=== PATIENT | male | born 1975 | race Caucasian/White ===

== ENCOUNTER 2020-05-20 10:35 | Emergency (ER) | payer OTHER, SELFPAY ==
[2020-05-20 10:45] VITALS: BP 148/83; PULSE 68; RESP 18; TEMP 36.7; O2SAT 100
--- NOTE | 2020-05-20 10:58 | ED.GENADULT ---
HPI - General Adult General Chief complaint: Extremity Injury, Lower Stated complaint: Gout left foot Time Seen by Provider: 05/20/20 10:58 Source: patient Mode of arrival: ambulatory History of Present Illness HPI narrative: Patient presents with swelling to right great toe and joint. Patient states he has a history of gout and has had changed his diet recently to a high-protein and has increased his alcohol intake. Patient states he did kick a door but he had a steel toed boot on and denies any need for an x-ray at this time. Patient states his symptoms are the same as when he has had gout flare in the past. Related Data Allergies Allergy/AdvReac Type Severity Reaction Status Date / Time No Known Allergies Allergy Unknown Verified 05/20/20 10:56 Review of Systems Review of Systems: Narrative: CONSTITUTIONAL: Denies fever, chills, or sweats. EYES: Denies visual changes, redness, or discharge. ENT: Denies rhinorrhea, congestion, sore throat, or otalgia. CARDIOVASCULAR: Denies chest pain, palpitations, or edema. RESPIRATORY: Denies cough or dyspnea. GASTROINTESTINAL: Denies abdominal pain, nausea, vomiting, or diarrhea. GENITOURINARY: Denies dysuria or hematuria. SKIN: Denies rash or itching. MUSCULOSKELETAL: Denies back pain, joint pain, or myalgia. Right great toe pain NEUROLOGIC: Denies headache, numbness, or weakness. PSYCHIATRIC: Denies anxiety or depression. All systems reviewed & are unremarkable except as noted in HPI and below PMFSH Family History Family History (Updated 03/05/16 @ 23:21 by DOCTOR UNKNOWN) Mother Patient's mother is in good health Family history of malignant neoplasm of breast in first degree relative Father Patient's father is in good health Sibling Patient's sister is in good health Patient's brother is in good health Social History Social History Smoking status: Never smoker Alcohol intake: current Comments At time of signature, agree with nursing past medical, surgical, social and family history. There is no relevant family history pertinent to the presenting complaint Exam Narrative: Exam Narrative: GENERAL: Well-appearing, well-nourished, and in no acute distress. HEAD: Normocephalic, atraumatic. EYES: PERRLA and EOMI. ENT: Nares clear, no rhinorrhea or epistaxis. Mucous membranes moist. NECK: Supple. CHEST: Clear to auscultation. No respiratory distress. HEART: Regular rate and rhythm. No murmur heard. Normal peripheral pulses. ABDOMEN: Soft, nontender, nondistended, normal active bowel sounds. EXTREMITIES: Normal range of motion. No edema. ANKLE EXAM SKIN INTACT. NORMAL DP PULSE, NORMAL CAP REFILL. NORMAL SENSATION. Swelling and redness to the base of right great toe consistent with gout SKIN: Warm, dry, no rash. NEURO: No focal deficits. Alert and oriented x3. Geovani Coma Scale Eye Opening: Spontaneous 4 [place] Coma Scale Motor: Obeys Commands 6 [place] Coma Scale Verbal: Oriented 5 [place] Coma Scale Total 15 Course Vital Signs Vital signs: Vital Signs Temperature 36.7 C 05/20/20 10:45 Pulse Rate 68 05/20/20 10:45 Respiratory Rate 18 05/20/20 10:45 Blood Pressure 148/83 H 05/20/20 10:45 Pulse Oximetry 100 05/20/20 10:45 Temperature 36.7 C 05/20/20 10:45 Pulse Rate 68 05/20/20 10:45 Respiratory Rate 18 05/20/20 10:45 Blood Pressure 148/83 H 05/20/20 10:45 Pulse Oximetry 100 05/20/20 10:45 Please EDWARD schedule a followup visit with your personal physician for further evaluation and treatment. Including recheck and discussion of your blood pressure. If your symptoms persist, change or worsen significantly before you can contact your personal physician then please, without delay, go to the emergency department for further evaluation Medical Decision Making Medical Records Medical records reviewed: Yes I reviewed the patient's medical records. Vital Signs Vital Signs: Vital Signs Temperature 36.7 C 05/20/20 10
== END 2020-05-20 11:05 | disposition home or self-care (01) ==
PROVIDERS: Emergency Provider Nurse Practitioner Family
DX: M10.9 Gout, unspecified (principal)
CPT/HCPCS: 99203; G0463

== ENCOUNTER 2020-07-01 09:20 | Outpatient (CLI) | payer OTHER, SELFPAY ==
[2020-07-01 09:48] LABS: INR 0.9; Prothrombin Time 12.2 Seconds (11.1-14.7)
[2020-07-01 09:52] LABS: Alanine Aminotransferase 153 U/L (4-50); Albumin Level 4.2 g/dL (3.5-5.1); Alkaline Phosphatase 85 U/L (38-126); Aspartate Amino Transferase 76 U/L (17-59); Bilirubin,Total 0.5 mg/dL (0.2-1.3)
[2020-07-01 10:32] LABS: HIV 1/2 Ab P24 Ag Result Negative (Negative)
[2020-07-01 10:46] LABS: Hepatitis B Surface Antigen Negative (Negative)
[2020-07-01 11:03] LABS: Hepatitis B Surface Anti Res Negative; Hepatitis C Virus Antibody Negative (Negative)
[2020-07-04 18:21] LABS: Hepatitis B Core Ab Total Nonreactive (Nonreactive)
== END 2020-07-01 09:21 | disposition home or self-care (01) ==
PROVIDERS: PCP Internal Medicine; Visit Provider Internal Medicine
DX: R74.01 Elevation of levels of liver transaminase levels (principal)
CPT/HCPCS: 36415; 80076; 85610; 86703; 86704; 86706; 86803; 87340; G0432

== ENCOUNTER → 2020-07-02 11:32 | Outpatient (CLI) | payer OTHER, SELFPAY ==
--- NOTE | ~2020-07-02 | US_ITS ---
EXAMINATION: US abdomen limited EXAM DATE: 07/02/2020 12:01 INDICATION: R74.01 - Elevation of levels of liver transaminase levels . TECHNIQUE: Multiple grayscale and Doppler images of the abdomen right upper quadrant were obtained (migue y a technologist who performed the scan) and subsequently reviewed. There is no prior study for mike sam. FINDINGS: The pancreatic head and body are normal in appearance. The pancreatic tail is not visualized. The l iver has normal echogenicity and contour. There is a 10 x 9 x 7 mm hyperechoic homogeneous focus shannon ntified in the left liver lobe, most likely hemangioma or other benign histology. Liver lesions are n onspecific by ultrasound. Consider 6 month follow-up ultrasound. There is no evidence of intrahepati c biliary duct dilation. Portal venous flow was seen in the hepatopedal, normal direction and has no rmal Doppler waveform. No right-sided hydronephrosis. Common bile duct measures 3 mm, which is normal. The gallbladder wall is normal in thickness, with ex pected amount of distention. No sonographic evidence of pericholecystic fluid. There is no cholelit hiases. Technologist performing exam reports patient did not demonstrate sonographic Romero's sign. Please note that this sign is less reliable in patients who have received pain medication. IMPRESSION: Small nonspecific left liver lobe lesion is likely hemangioma or other benign histology. Consider 6 month follow-up sonogram. Reviewed, dictated and finalized at location B. OLIDATION ACCOUNTANT IMPRESSION: Small nonspecific left liver lobe lesion is likely hemangioma or ot her benign histology. Consider 6 month follow-up sonogram.
== END ==
PROVIDERS: PCP Internal Medicine; Visit Provider Internal Medicine
DX: R74.01 Elevation of levels of liver transaminase levels (principal); K76.9 Liver disease, unspecified
CPT/HCPCS: 76705

== ENCOUNTER 2020-10-16 11:29 | Outpatient (CLI) | payer OTHER, SELFPAY ==
[2020-10-16 12:20] LABS: Alanine Aminotransferase 54 U/L (4-50); Albumin Level 4.2 g/dL (3.5-5.1); Alkaline Phosphatase 72 U/L (38-126); Anion Gap 8 mmol/L (8-16); Aspartate Amino Transferase 42 U/L (17-59); Bilirubin,Total 0.7 mg/dL (0.2-1.3); Blood Urea Nitrogen 16 mg/dL (9-20); Calcium 9.1 mg/dL (8.4-10.2); Carbon Dioxide 28 mmol/L (22-30); Chloride 106 mmol/L (98-107); Estimated Glomerular Filt Rate > 60; Glucose 92 mg/dL (75-110); Sodium 142 mmol/L (137-145)
== END 2020-10-16 11:30 | disposition home or self-care (01) ==
LOC: ANHLAB 11:33
PROVIDERS: PCP Internal Medicine; Visit Provider Internal Medicine
DX: R74.8 Abnormal levels of other serum enzymes (principal)
CPT/HCPCS: 36415; 80053

== ENCOUNTER 2021-05-04 01:09 | Emergency (ER) | payer OTHER, SELFPAY ==
[2021-05-04 01:11] VITALS: BP 156/80; PULSE 78; RESP 18; TEMP 36.1; O2SAT 99
--- NOTE | 2021-05-04 04:04 | ED.SKABFB ---
HPI - Skin/Abscess/Foreign Bdy General Chief complaint: Skin/Abscess/Foreign Body Stated complaint: Back pain, cyst Time Seen by Provider: 05/04/21 03:14 History of Present Illness HPI narrative: Patient is a 46-year-old male who presents ER with pain and swelling to his back. Reports he has a cyst in his back has become irritated over the last day. Reports purulent drainage. No fevers or chills or sweats. Has had this happen previously and required drainage. No known trauma. Related Data Home Medications Medication Instructions Recorded Confirmed lactobacillus combination no.8 3 3,000 mmu cells PO DAILY 07/01/20 11/11/20 billion cell capsule multivitamin,cf-[id number] 1 tablet PO DAILY 07/01/20 11/11/20 omega-3 fatty acids 1,000 mg 1,000 mg PO DAILY 07/01/20 11/11/20 capsule Allergies Allergy/AdvReac Type Severity Reaction Status Date / Time No Known Allergies Allergy Unknown Verified 05/04/21 01:14 Review of Systems Constitutional: Constitutional: Denies chills, Denies fever(s) and Denies weakness Musculoskeletal: Musculoskeletal: Denies back pain (From infection not from a muscular issue) and Denies muscle cramps Integumentary/Breasts: Skin/Breast: Reports erythema, Denies rash and Denies skin ulcer PMFSH Past Medical History Medical History (Updated 05/04/21 @ 04:08 by Ten Waters MD) Erectile dysfunction Long-term current use of testosterone replacement therapy Surgical History Surgical History (Updated 05/04/21 @ 04:07 by Ten Waters MD) No pertinent past surgical history Family History Family History (Updated 07/01/20 @ 08:06 by Lise Moura) Mother Family history of malignant neoplasm of breast in first degree relative Hypertension Obesity Father Patient's father is in good health Sibling Hypertension Anxiety Obesity Grandparent Arthritis Lung cancer Cancer Social History Social History (Updated 07/01/20 @ 08:07 by Lise Moura) Smoking status: Former smoker Alcohol intake: current Substance use: never Exam Narrative: GENERAL: Well-appearing, well-nourished, and in no acute distress. HEAD: Normocephalic, atraumatic. Back: Right lower back with redness and swelling consistent with inflamed cyst. No midline tenderness. EXTREMITIES: Normal range of motion. No edema. SKIN: Warm, dry, no rash. NEURO: Alert and oriented x3. PSYCH: Normal mood and affect. Course Course Emergency Course: Inflamed/infected cyst. Discharged with Bactrim, tolerated I&D. Vital Signs Vital signs: Vital Signs Temperature 96.9 F L 05/04/21 01:11 Pulse Rate 78 05/04/21 01:11 Respiratory Rate 18 05/04/21 01:11 Blood Pressure 156/80 H 05/04/21 01:11 Pulse Oximetry 99 05/04/21 01:11 Temperature 96.9 F L 05/04/21 01:11 Pulse Rate 78 05/04/21 01:11 Respiratory Rate 18 05/04/21 01:11 Blood Pressure 156/80 H 05/04/21 01:11 Pulse Oximetry 99 05/04/21 01:11 Procedures Abscess I/D back: Date of Incision: 05/04/21 Time of Incision: 03:40 Local Anesthetic: lidocaine 1% and with epi Amount of anesthesia used (mL): 5 Irrigation: No Packing used?: iodoform I&D Results: Pus Complications: pain Discharge Plan Discharge Clinical Impression: Abscess Patient Disposition: Home, Self-Care Condition: Stable Instructions: Antibiotic Form, Abscess (ED) Additional Instructions: Follow-up with your primary care doctor. Remove your packing in 2 days. Take your full course of antibiotics. Return to the ER if you have increased pain, increased redness to your back, you have additional concerns. Prescriptions: New sulfamethoxazole-trimethoprim [Bactrim DS] 800-160 mg tablet 1 tablet PO Q12H Qty: 14 RF: 0 hydrocodone-acetaminophen 5-325 mg tablet 1 tablet PO Q6H PRN (Reason: pain) Qty: 12 RF: 0 No Action omega-3 fatty acids [Fish Oil Concentrate] 1,00
[2021-05-04 04:35] VITALS: BP 176/80; PULSE 76; RESP 20; TEMP 36.2; O2SAT 98
== END 2021-05-04 04:36 | disposition home or self-care (01) ==
PROVIDERS: Emergency Provider Emergency Medicine; PCP Internal Medicine
DX: L02.212 Cutaneous abscess of back [any part, except buttock and flank] (principal); Z87.891 Personal history of nicotine dependence
CPT/HCPCS: 10061; 99283

== ENCOUNTER 2023-02-12 19:36 | Emergency (ER) | payer OTHER, SELFPAY ==
[2023-02-12 19:46] VITALS: BP 179/93; PULSE 75; RESP 16; TEMP 36.6; O2SAT 98
--- NOTE | 2023-02-12 19:54 | ED.GENADULT ---
HPI - General Adult General Stated complaint: Insect Bite Source: patient Mode of arrival: ambulatory Limitations: no limitations and dementia History of Present Illness HPI narrative: Patient presents for evaluation of left foot swelling. He indicates he noticed what he believes to be a insect bite to the anterior aspect of the distal left lower leg about 36 hours ago. Today he noticed swelling in the left foot. He has some redness. He denies significant pain. No fever, chills, nausea, vomiting. He does not smoke. He is not diabetic. He took cetirizine for symptoms. He also took a 20 mg prednisone that he had at home. Related Data Home Medications Medication Instructions Recorded Confirmed lactobacillus combination no.8 3 3,000 mmu cells PO DAILY 07/01/20 11/11/20 billion cell capsule (Adult Probiotic) multivitamin,sg-vfsi-gesrykzz 1 tablet PO DAILY 07/01/20 11/11/20 (Complete Multivitamin tablet) omega-3 fatty acids 1,000 mg 1,000 mg PO DAILY 07/01/20 11/11/20 capsule (Fish Oil Concentrate) Allergies Allergy/AdvReac Type Severity Reaction Status Date / Time No Known Allergies Allergy Unknown Verified 02/12/23 19:48 Review of Systems Review of Systems: CONSTITUTIONAL: Denies fever, chills, or sweats. EYES: Denies visual changes, redness, or discharge. ENT: Denies rhinorrhea, congestion, sore throat, or otalgia. CARDIOVASCULAR: Denies chest pain, palpitations. RESPIRATORY: Denies cough or dyspnea. GASTROINTESTINAL: Denies abdominal pain, nausea, vomiting, or diarrhea. GENITOURINARY: Denies dysuria or hematuria. SKIN: Reports insect bite to the distal aspect of the left lower leg. MUSCULOSKELETAL: Reports swelling in the left foot. Denies back pain and joint pain NEUROLOGIC: Denies headache, numbness, dizziness, or weakness. PSYCHIATRIC: Denies anxiety or depression. [facility] Past Medical History Medical History Erectile dysfunction Long-term current use of testosterone replacement therapy Surgical History Surgical History No pertinent past surgical history Family History Family History Mother Family history of malignant neoplasm of breast in first degree relative Hypertension Obesity Father Patient's father is in good health Sibling Hypertension Anxiety Obesity Grandparent Arthritis Lung cancer Cancer Social History Social History Smoking status: Former smoker Alcohol intake: current Substance use: never Living arrangements: with family Gender identity (if verbalized by the patient): Male Sexual Orientation (if Verbalized by the Patient): Straight or Heterosexual Spiritual care concerns: No Exam Narrative: GENERAL: Well-appearing, well-nourished, and in no acute distress. HEAD: Normocephalic, atraumatic. EYES: PERRLA and EOMI. ENT: Nares clear, no rhinorrhea or epistaxis. Mucous membranes moist. Oropharynx without tonsillar hypertrophy exudate or other lesions. Bilateral TMs pearly dash nonbulging NECK: Supple. No adenopathy or masses. No carotid bruits or JVD CHEST: Clear to auscultation. No respiratory distress. No wheezes rales or rhonchi HEART: Regular rate and rhythm. No murmur heard. Normal peripheral pulses. ABDOMEN: Soft, nontender, nondistended, normal active bowel sounds. EXTREMITIES: Normal range of motion. Left foot is edematous. There is no posterior calf tenderness or swelling in the leg SKIN: There is a pinpoint puncture justa noted to the anterior aspect of the distal left lower leg. There is an approximately 1 cm area of surrounding erythema and an annular pattern. There is mild erythema noted to the dorsal aspect of the left foot. NEURO: No focal deficits. Alert and oriented x3. PSYCH: N
== END 2023-02-12 19:55 | disposition home or self-care (01) ==
PROVIDERS: Emergency Provider Nurse Practitioner
DX: S90.862A Insect bite (nonvenomous), left foot, initial encounter (principal); W57.XXXA Bitten or stung by nonvenomous insect and other nonvenomous arthropods, initial encounter
CPT/HCPCS: 99213; G0463

== ENCOUNTER 2025-05-17 10:44 | Emergency (ER) | payer OTHER, SELFPAY ==
--- NOTE | ~2025-05-17 | XR_ITS ---
EXAMINATION: XR knee LT min 4V DATE: 05/17/2025 11:11 INDICATION: Medial/distal left knee pain TECHNIQUE: Anteroposterior, 2 oblique and crosstable lateral views of the left knee were obtained COMPARISON: None. FINDINGS: Alignment is normal. No fracture. No joint effusion/layering lipohemarthrosis. Soft tissues are unremarkable. IMPRESSION: 1. Negative left knee radiographs. Reviewed, dictated and finalized at location A.
[2025-05-17 10:50] VITALS: BP 139/94; PULSE 61; RESP 16; TEMP 36.2; O2SAT 99
--- NOTE | 2025-05-17 11:33 | ED.EXTPRO ---
HPI - Extremity Problem General Chief complaint: Extremity Problem,Nontraumatic Stated complaint: left knee pain Time Seen by Provider: 05/17/25 11:15 Source: patient and RN notes reviewed Mode of arrival: ambulatory Limitations: no limitations History of Present Illness HPI Narrative: 50-year-old male presents Express Care complaining of left knee pain approximately 2 months. Patient says the pain is intermittent, he saw his PCP 2 months ago had an outpatient x-ray ordered and was given a course of steroids, had a problem getting the x-ray never got imaging and took the course steroids with some improvement. Since then the patient states the pain is getting worse reports swelling to the distal part of his left knee. Patient does have a history of gout, he takes allopurinol, he said recent uric acid level was normal. Patient denies any redness, fevers, aches, chills, nausea, vomiting, joint stiffness, or any other symptoms. Related Data Allergies Allergy/AdvReac Type Severity Reaction Status Date / Time No Known Allergies Allergy Unknown Verified 05/17/25 10:59 Review of Systems Review of Systems: CONSTITUTIONAL: Denies fever, chills, or sweats. EYES: Denies visual changes, redness, or discharge. ENT: Denies rhinorrhea, congestion, sore throat, or otalgia. CARDIOVASCULAR: Denies chest pain, palpitations, or edema. RESPIRATORY: Denies cough or dyspnea. GASTROINTESTINAL: Denies abdominal pain, nausea, vomiting, or diarrhea. GENITOURINARY: Denies dysuria or hematuria. SKIN: Denies rash, wound, or itching. MUSCULOSKELETAL: Denies back pain, joint pain, or myalgia. Positive for knee pain and swelling. NEUROLOGIC: Denies headache, numbness, or weakness. PSYCHIATRIC: Denies anxiety or depression. All other systems reviewed are negative, except as documented in HPI. [facility] Past Medical History Medical History Erectile dysfunction Long-term current use of testosterone replacement therapy Surgical History Surgical History No pertinent past surgical history Family History Family History Mother Family history of malignant neoplasm of breast in first degree relative Hypertension Obesity Father Patient's father is in good health Sibling Hypertension Anxiety Obesity Grandparent Arthritis Lung cancer Cancer Social History Social History Smoking status: Former smoker Alcohol intake: current Substance use: never Living arrangements: with family Gender identity (if verbalized by the patient): Male Sexual Orientation (if Verbalized by the Patient): Straight or Heterosexual Spiritual care concerns: No Comments At the time of my signature, I reviewed and agree with the nursing past medical, surgical, social, and family history. There is no relevant family history pertinent to the patient complaint. Exam Narrative: GENERAL: This is a well-nourished, well-developed adult, in no apparent distress. They are non ill-appearing, nontoxic appearing. HEAD: normocephalic, atraumatic. EYES: Sclera clear/white. Vision is grossly intact. Conjunctiva normal. Extraocular movement intact. EARS: External ears normal Hearing grossly intact. NOSE: External nose normal THROAT: Mucous membranes moist NECK: Neck supple CARDIOVASCULAR: Regular rate and rhythm RESPIRATORY: Respiratory rate normal, respiratory effort nonlabored, no respiratory distress NEURO: awake, alert, and oriented to person, place and time. There were no obvious focal neurologic abnormalities. EXTREMITIES: Left knee No obvious deformity, injury, bruising, redness. There is mild swelling to the distal medial knee near the bursa. Mild pain through full range of motion. No bony tenderness. Capillary refill less than 3 seconds. No valgus or varus laxity. Normal sensation. Neurovascular status intact distal injury. BACK: Nontender without deformity. Course Course Emergency Course: Portions of this record may have been created with voice recognition software Level of Care: Express Care Visit Vital Signs Vital signs: Vital Signs Temperature 97.2 F L 05/17/25 10:50 Pulse Rate 61 05/17/25 10:50 Respiratory Rate 16 05/17/25 10:50 Blood Pressure 139/94 H 05/17/25 10:50 Pulse Oximetry 99 05/17/25 10:50 Oxygen Delivery Room Air 05/17/25 10:50 Temperature 97.2 F L 05/17/25 10:50 Pulse Rate 61 05/17/25 10:50 Respiratory Rate 16 05/17/25 10:50 Blood Pressure 139/94 H 05/17/25 10:50 Pulse Oximetry 99 05/17/25 10:50 Oxygen Delivery Room Air 05/17/25 10:50 Reviewed MDM - Extremity (Nontraumatic) MDM Narrative Medical decision making narrative: X-ray left knee is negative for fractures or acute findings. No arthritis notice on imaging. No concern of infection. Symptoms likely related to bursitis. Will prescribe a course of prednisone, give patient prescription ibuprofen for pain. Refer patient ortho for further evaluation. Discussed physical exam findings. Advised supportive measures and signs/symptoms to go to the ER. Pt is appropriate for outpt treatment and f/u. Differential Diagnosis Differential diagnosis: Likely gout and other (Arthritis, knee fracture, knee sprain, bursitis) Critical Care Time Critical Care Time Critical Care Time: No Discharge Plan Discharge Clinical Impression: Bursitis Qualifiers: Bursitis location: knee Knee bursitis location: unspecified Laterality: left Qualified Code(s): M70.52 - Other bursitis of knee, left knee Patient Disposition: Home Condition: Stable Instructions: Antibiotic Form, Knee Bursitis (ED) Additional Instructions: The x-ray of your left knee is negative for any fractures or acute findings. Take the ibuprofen as directed. Take prednisone as directed. You may alternate with Tylenol. You may take up to 1000 mg Tylenol every 6-8 hours. Do not exceed 1000 mg per dose, do exceed more than 4000 mg of Tylenol in a day. Rest and elevate the leg; bear weight as tolerated Apply ice 15-20 minute intervals several times a day Keep it wrapped with RENETTA or using knee brace Follow up with your primary care provider or orthopedist 1-2 weeks. Go to the ER if you developed worsening redness, swelling, pain, fevers, or any serious concerns. Patient Language: French Prescriptions: New ibuprofen 800 mg tablet 800 mg PO Q6H PRN (Reason: pain) Qty: 30 0RF prednisone 20 mg tablet 40 mg PO DAILY 5 Days Qty: 10 0RF No Action (DME) BD Regular Bevel Victoria 18 gauge x 1 1/2 needle See Rx Instructions .ROUTE .MEDSUPPLY Qty: 100 3RF Rx Instructions: Use to draw up Testosterone (DME) syringe with needle [BD Luer-Elliott Syringe] 3 mL 21 gauge x 1 1/2 syringe See Rx Instructions .ROUTE .MEDSUPPLY Qty: 100 3RF Rx Instructions: Use to inject Testosterone testosterone cypionate 100 mg/mL oil 150 mg IM WEEKLY Qty: 10 3RF Rx Instructions: as a single dose Follow-up/Referrals: Kenna,MD Eric [Primary Care Provider, Unknown] Stand Alone Forms: Work/School Release IP Time of Disposition: 11:30
== END 2025-05-17 11:34 | disposition home or self-care (01) ==
PROVIDERS: PCP Internal Medicine
DX: M70.52 Other bursitis of knee, left knee (principal); Z87.891 Personal history of nicotine dependence
CPT/HCPCS: 73564; 99213; G0463